=== PATIENT | male | born 1960 | race African-American/Black ===

== ENCOUNTER 2023-03-17 23:01 | Inpatient (IN) | payer MEDICARE, MEDICAID ==
[~2023-03-17] VITALS: Ht 175.3 cm; Wt 88.0 kg
[2023-03-17] MEDS ORDERED: MORPHINE SULFATE 4 MG/ML CPJ (NOT FOR IM USE) IV ONE (23:15)
[2023-03-17] MEDS ORDERED: ONDANSETRON HCL 4MG/2ML INJ IV ONE (23:15)
[2023-03-17] MEDS ORDERED: SODIUM CHLORIDE 0.9% 1,000 ML IV ONE ×2 (23:15)
[2023-03-18] MEDS ORDERED: CLINDAMYCIN 900 MG in DEXTROSE 5% WATER 50 ML IV ONE (01:00)
[2023-03-18] MEDS ORDERED: PIPERACILLIN/TAZ 3.375G PREMIX 50 ML IV ONE (01:00)
[2023-03-18] MEDS ORDERED: VANCOMYCIN 1G PREMIX 200 ML IV SCH (01:00)
[2023-03-18] MEDS ORDERED: MORPHINE SULFATE 4 MG/ML CPJ (NOT FOR IM USE) IV NR (01:15)
[2023-03-18] MEDS ORDERED: CLINDAMYCIN 600MG PREMIX 50 ML IV NR (01:30)
[2023-03-18 01:32] LABS: HEMATOCRIT. 31.4 % (42.0-52.0); HEMOGLOBIN. 10.3 g/dL (14.0-18.0); MEAN CORPUSCULAR HEMOGLOBIN 30.3 pg (28.0-32.0); MEAN CORPUSCULAR HGB CONC 32.7 g/dL (31.0-37.0); MEAN CORPUSCULAR VOLUME 92.6 fL (80.0-94.0); MEAN PLATELET VOLUME 6.6 fl (7.4-10.4); PLATELET 627 x1000/uL (130-400); RED BLOOD CELL COUNT 3.39 mill/uL (4.7-6.1); RED CELL DISTRIBUTION WIDTH 13.7 % (11.6-14.6); WHITE BLOOD COUNT 27.5 x1000/uL (4.5-11.0)
[2023-03-18] MEDS ORDERED: ONDANSETRON HCL 4MG/2ML INJ IV NR (01:45)
[2023-03-18 01:46] LABS: ALANINE AMINOTRANSFERASE 16 IU/L (10-49); ALBUMIN 3.4 g/dL (3.2-4.8); ASPARTATE AMINOTRANSFERASE 24 IU/L (<34); BILIRUBIN TOTAL 0.7 mg/dL (0.1-1.0); CALCIUM 8.7 mg/dL (8.7-10.4); CARBON DIOXIDE 28 mEq/L (21-32); CHLORIDE 96 mEq/L (98-107); CREATINE KINASE 72 IU/L (46-171); CREATININE 1.3 mg/dL (0.6-1.3); GLUCOSE 127 mg/dL (70-105); POTASSIUM 3.5 mEq/L (3.5-5.1); PROTEIN TOTAL 7.2 g/dL (6.0-8.3); SODIUM 132 mEq/L (136-145); TROPONIN I HIGH SENSITIVITY 46 ng/L (3.0-53); UREA NITROGEN BLOOD 24 mg/dL (9-23)
[2023-03-18 01:58] LABS: DIFFERENTIAL COMMENT 1
[2023-03-18 02:02] LABS: ETHANOL BLOOD < 10 mg/dL (<10)
[2023-03-18 02:19] LABS: INR 1.3; PROTHROMBIN TIME 13.5 sec (9.6-11.0)
[2023-03-18 02:33] LABS: PLATELET ESTIMATE INCREASED
[2023-03-18] MEDS ORDERED: DOCUSATE SODIUM 100MG CAPSULE PO PRN (03:45)
[2023-03-18] MEDS ORDERED: ACETAMINOPHEN 325MG TABLET PO PRN ×2 (03:45)
[2023-03-18] MEDS ORDERED: GUAIFENESIN 200MG/10ML SUGAR FREE UDC PO PRN (03:45)
[2023-03-18] MEDS ORDERED: DEXTROSE 50% WATER 50ML SYRINGE IV PRN (03:45)
[2023-03-18] MEDS ORDERED: SODIUM CHLORIDE 0.9% 1,000 ML IV SCH (03:45)
[2023-03-18] MEDS ORDERED: IPRATROPIUM/ALBUTEROL 0.5-3(2.5)MG/3ML NEB HHN PRN (03:45)
[2023-03-18] MEDS ORDERED: MAGNESIUM/ALUMINUM HYDROXIDE/SIMETHICONE 30ML UDC PO PRN (03:45)
[2023-03-18] MEDS ORDERED: CLONIDINE 0.1MG TABLET PO PRN (03:45)
[2023-03-18] MEDS ORDERED: ONDANSETRON HCL 4MG/2ML INJ IV PRN (03:45)
[2023-03-18] MEDS ORDERED: VANCOMYCIN 500MG PREMIX 100 ML IV NR (04:00)
[2023-03-18 04:50] LABS: FERRITIN 337 ng/mL (22-322); VITAMIN B12 SERUM 452 pg/mL (211-911)
[2023-03-18 05:13] LABS: IRON 18 ug/dL (65-175); TOTAL IRON BINDING CAPACITY 523 ug/dl (250-425)
[2023-03-18] MEDS: INSULIN LISPRO 100 UNITS/ML SUBCUT SCH ×4 (08:09→22:02)
[2023-03-18] MEDS: BLOOD SUGAR DIAGNOSTIC STRIP TEST SCH ×4 (08:09→21:47)
[2023-03-18] MEDS ORDERED: PIPERACILLIN/TAZOBACTAM 3.375 G in DEXTROSE 5% WATER 50 ML IV SCH ×2 (08:30→10:00)
[2023-03-18 09:00] VITALS: BP 112/68; PULSE 87; RESP 18; TEMP 96.9
[2023-03-18] MEDS: ENOXAPARIN 40MG/0.4ML SYR SUBCUT SCH (10:29)
[2023-03-18 12:00] VITALS: BP 111/72; PULSE 93; RESP 18; TEMP 99.1
[2023-03-18 12:53] LABS: CLARITY URINE CLOUDY (CLEAR); COLOR URINE DARK YELLOW (YELLOW); GLUCOSE URINE NEGATIVE (NEGATIVE); KETONES URINE NEGATIVE (NEGATIVE); LEUKOCYTE ESTERASE URINE NEGATIVE (NEGATIVE); NITRITE URINE NEGATIVE (NEGATIVE); OCCULT BLOOD URINE TRACE (NEGATIVE); PH URINE 5.5 (4.5-8.0); PROTEIN URINE 1+ (NEGATIVE)
[2023-03-18 13:15] LABS: BACTERIA URINE FEW; RBC URINE 0-2 /hpf (0-2); SQUAMOUS EPITHELIAL CELL URINE RARE /lpf (RARE/1+); WBC URINE 0-2 /hpf (0-2); YEAST URINE NONE SEEN
[2023-03-18] MEDS ORDERED: CEFTRIAXONE 2GM/50ML (ADDEASE) 50 ML IV SCH (14:00)
[2023-03-18 14:30] LABS: *AMPHETAMINES SCREEN URINE NEGATIVE (NEGATIVE); *BARBITURATES SCREEN URINE NEGATIVE (NEGATIVE); *BENZODIAZEPINES SCREEN URINE NEGATIVE (NEGATIVE); *COCAINE SCREEN URINE NEGATIVE (NEGATIVE); CANNABINOID URINE SCREEN NEGATIVE (NEGATIVE); ECSTASY MDMA SCREEN URINE NEGATIVE (NEGATIVE); METHADONE URINE SCREEN Neg (NEGATIVE); OPIATES URINE SCREEN PRESUMPTIVE POSITIVE (NEGATIVE); PHENCYCLIDINE URINE SCREEN NEGATIVE (NEGATIVE)
[2023-03-18 14:30] LABS: CREATINE KINASE 61 IU/L (46-171)
[2023-03-18] MEDS: CEFTRIAXONE 2 G in DEXTROSE 5% WATER 50 ML IV SCH (15:07)
[2023-03-18] MEDS ORDERED: GLIP5TAB22 MT (15:56)
[2023-03-18] MEDS ORDERED: METF-414 MT (15:56)
[2023-03-18] MEDS ORDERED: MAGN400C PO (15:56)
[2023-03-18 16:00] VITALS: BP 120/66; PULSE 86; RESP 18; TEMP 98.7
[2023-03-18] MEDS ORDERED: NALOXONE HCL 0.4MG/ML VIAL IV PRN (17:00)
[2023-03-18] MEDS ORDERED: CLINDAMYCIN 900 MG in DEXTROSE 5% WATER 50 ML IV SCH (17:00)
[2023-03-18] MEDS ORDERED: CLINDAMYCIN 900 MG IV SCH ×2 (18:00)
[2023-03-18] MEDS ORDERED: PNEUMOCOCCAL 23-VAL P-SAC VAC 0.5 ML IM ONE (18:30)
[2023-03-18] MEDS ORDERED: INFLUENZA VACCINE 05/PF 0.5 ML SYRINGE IM ONE (18:30)
[2023-03-18] MEDS: CLINDAMYCIN 900 MG IV SCH ×2 (19:18)
[2023-03-18 20:00] VITALS: BP 131/68; PULSE 85; RESP 18; TEMP 98.1
[2023-03-18] MEDS: VANCOMYCIN 750MG PREMIX 150 ML IV SCH (21:18)
[2023-03-18] MEDS ORDERED: ETOMIDATE 2MG/ML 10ML VIAL IV ONE (23:27)
[2023-03-18] MEDS ORDERED: ROCURONIUM BROMIDE 10MG/ML VIAL 5ML IV ONE (23:27)
[2023-03-18] MEDS ORDERED: FENTANYL CITRATE/PF 50MCG/ML 2ML VIAL ONE (23:28)
[2023-03-18] MEDS ORDERED: GLYCOPYRROLATE 0.2 MG/ML 2ML VIAL ONE ×2 (23:28)
[2023-03-18] MEDS ORDERED: NEOSTIGMINE METHYLSULFATE 1MG/ML 10 ML VIAL ONE (23:28)
[2023-03-18] MEDS ORDERED: MIDAZOLAM HCL 2 MG/2 ML VIAL ONE (23:29)
[2023-03-18] MEDS ORDERED: LABETALOL HCL 5MG/ML VIAL 20ML IV ONE (23:49)
[2023-03-18] MEDS ORDERED: HYDROMORPHONE HCL/PF 2MG/ML CPJ ONE (23:50)
[2023-03-19] MEDS ORDERED: ONDANSETRON HCL 4MG/2ML INJ IV PRN (00:15)
[2023-03-19] MEDS ORDERED: GENTAMICIN SULF 40MG/ML 2ML VIAL ONE (00:15)
[2023-03-19] MEDS ORDERED: HYDROMORPHONE HCL/PF 2MG/ML CPJ IV PRN (00:15)
[2023-03-19] MEDS ORDERED: LABETALOL 5MG/ML SYR 20 MG/4 ML SYRINGE IV PRN (00:15)
[2023-03-19] MEDS ORDERED: VANCOMYCIN HCL 1 GM/VIAL ONE ×2 (00:15→00:16)
[2023-03-19] MEDS ORDERED: MEPERIDINE HCL/PF 25MG/ML CPJ IV PRN (00:15)
[2023-03-19 02:35] VITALS: BP 113/61; PULSE 76; RESP 18; TEMP 98.4
[2023-03-19] MEDS: CLINDAMYCIN 900 MG IV SCH ×6 (03:00→18:25)
[2023-03-19 04:00] VITALS: BP 120/63; PULSE 75; RESP 20; TEMP 97.2
[2023-03-19] MEDS: BLOOD SUGAR DIAGNOSTIC STRIP TEST SCH ×4 (05:51→21:15)
[2023-03-19] MEDS: INSULIN LISPRO 100 UNITS/ML SUBCUT SCH ×4 (06:16→21:18)
[2023-03-19 07:12] LABS: HEMATOCRIT. 27.7 % (42.0-52.0); HEMOGLOBIN. 9.2 g/dL (14.0-18.0); MEAN CORPUSCULAR HEMOGLOBIN 30.6 pg (28.0-32.0); MEAN CORPUSCULAR HGB CONC 33.4 g/dL (31.0-37.0); MEAN CORPUSCULAR VOLUME 91.5 fL (80.0-94.0); MEAN PLATELET VOLUME 6.6 fl (7.4-10.4); PLATELET 592 x1000/uL (130-400); RED BLOOD CELL COUNT 3.02 mill/uL (4.7-6.1); RED CELL DISTRIBUTION WIDTH 14.2 % (11.6-14.6); WHITE BLOOD COUNT 32.1 x1000/uL (4.5-11.0)
[2023-03-19 07:17] LABS: DIFFERENTIAL COMMENT 1
[2023-03-19 07:39] LABS: ALANINE AMINOTRANSFERASE 12 IU/L (10-49); ALBUMIN 2.7 g/dL (3.2-4.8); ASPARTATE AMINOTRANSFERASE 18 IU/L (<34); BILIRUBIN TOTAL < 0.2 mg/dL (0.1-1.0); CARBON DIOXIDE 25 mEq/L (21-32); CHLORIDE 98 mEq/L (98-107); CHOLESTEROL 95 mg/dL (<200); CREATININE 1.2 mg/dL (0.6-1.3); GLUCOSE 216 mg/dL (70-105); HDL CHOLESTEROL < 20 mg/dL (>55); LDL CHOLESTEROL 68 mg/dL (5-100); POTASSIUM 3.8 mEq/L (3.5-5.1); PROTEIN TOTAL 5.9 g/dL (6.0-8.3); SODIUM 133 mEq/L (136-145); T4 FREE 1.53 ng/dL (0.89-1.76); THYROID STIMULATING HORMONE 0.73 uIU/mL (0.55-4.78); TRIGLYCERIDE 77 mg/dL (0-150); UREA NITROGEN BLOOD 23 mg/dL (9-23)
[2023-03-19 08:00] VITALS: BP 125/57; PULSE 70; RESP 18; TEMP 99.3
[2023-03-19] MEDS: VANCOMYCIN 750MG PREMIX 150 ML IV SCH ×2 (08:43→21:16)
[2023-03-19] MEDS: ENOXAPARIN 40MG/0.4ML SYR SUBCUT SCH (08:44)
[2023-03-19] MEDS: HYDROCODONE/ACETAMINOPHEN 5/325MG TABLET PO PRN ×2 (08:56→18:25)
[2023-03-19 12:00] VITALS: BP 129/74; PULSE 79; RESP 18; TEMP 97.4
[2023-03-19 13:38] LABS: PLATELET ESTIMATE INCREASED
[2023-03-19] MEDS: CEFTRIAXONE 2 G in DEXTROSE 5% WATER 50 ML IV SCH (14:59)
[2023-03-19 16:00] VITALS: BP 104/57; PULSE 68; RESP 18; TEMP 97.2
[2023-03-19 20:00] VITALS: BP 105/69; PULSE 80; RESP 20; TEMP 97.4
[2023-03-19] MEDS: INSULIN GLARGINE 100 UNITS/ML SUBCUT SCH (21:19)
[2023-03-20] VITALS: BP 105/58; PULSE 64; RESP 18; TEMP 96.8
[2023-03-20] MEDS: CLINDAMYCIN 900 MG IV SCH ×6 (01:49→17:52)
[2023-03-20 04:00] VITALS: BP 110/61; PULSE 68; RESP 20; TEMP 96.9
[2023-03-20] MEDS: BLOOD SUGAR DIAGNOSTIC STRIP TEST SCH ×4 (06:37→21:00)
[2023-03-20] MEDS: INSULIN LISPRO 100 UNITS/ML SUBCUT SCH ×4 (06:50→22:22)
[2023-03-20 08:00] VITALS: BP 111/61; PULSE 74; RESP 20; TEMP 97.7
[2023-03-20] MEDS: VANCOMYCIN 750MG PREMIX 150 ML IV SCH (08:46)
[2023-03-20] MEDS: TAMSULOSIN HCL 0.4MG SR CAPSULE PO SCH (08:47)
[2023-03-20] MEDS: ENOXAPARIN 40MG/0.4ML SYR SUBCUT SCH (08:48)
[2023-03-20 09:43] LABS: HEMATOCRIT. 25.9 % (42.0-52.0); HEMOGLOBIN. 8.8 g/dL (14.0-18.0); MEAN CORPUSCULAR HEMOGLOBIN 30.4 pg (28.0-32.0); MEAN CORPUSCULAR HGB CONC 33.9 g/dL (31.0-37.0); MEAN CORPUSCULAR VOLUME 89.6 fL (80.0-94.0); MEAN PLATELET VOLUME 6.7 fl (7.4-10.4); PLATELET 578 x1000/uL (130-400); RED BLOOD CELL COUNT 2.89 mill/uL (4.7-6.1); WHITE BLOOD COUNT 21.6 x1000/uL (4.5-11.0)
[2023-03-20 09:49] LABS: DIFFERENTIAL COMMENT 1
[2023-03-20 09:56] LABS: ALANINE AMINOTRANSFERASE 8 IU/L (10-49); ALBUMIN 2.6 g/dL (3.2-4.8); ASPARTATE AMINOTRANSFERASE 11 IU/L (<34); BILIRUBIN TOTAL 0.2 mg/dL (0.1-1.0); CALCIUM 7.7 mg/dL (8.7-10.4); CARBON DIOXIDE 30 mEq/L (21-32); CHLORIDE 97 mEq/L (98-107); CREATININE 1.2 mg/dL (0.6-1.3); GLUCOSE 185 mg/dL (70-105); POTASSIUM 3.7 mEq/L (3.5-5.1); SODIUM 134 mEq/L (136-145); UREA NITROGEN BLOOD 19 mg/dL (9-23)
[2023-03-20 12:00] VITALS: BP 114/58; PULSE 69; RESP 20; TEMP 97.9
[2023-03-20 14:40] LABS: PLATELET ESTIMATE INCREASED
[2023-03-20] MEDS: CEFTRIAXONE 2 G in DEXTROSE 5% WATER 50 ML IV SCH (15:08)
[2023-03-20 16:00] VITALS: BP 104/57; PULSE 91; RESP 18; TEMP 97.9
[2023-03-20] MEDS: CEFEPIME 2,000 MG in DEXT 5% WATER 100 ML IV SCH (18:28)
[2023-03-20] MEDS: SODIUM CHLORIDE 0.9% 1,000 ML IV SCH (18:29)
[2023-03-20 20:00] VITALS: BP 111/61; PULSE 75; RESP 20; TEMP 97.3
[2023-03-20] MEDS: HYDROCODONE/ACETAMINOPHEN 5/325MG TABLET PO PRN (21:01)
[2023-03-20] MEDS: INSULIN GLARGINE 100 UNITS/ML SUBCUT SCH (22:21)
[2023-03-20] MEDS: VANCOMYCIN 1G PREMIX 200 ML IV SCH (23:31)
[2023-03-21] VITALS: BP 114/60; PULSE 65; RESP 20; TEMP 97.7
[2023-03-21] MEDS: CLINDAMYCIN 900 MG IV SCH ×6 (02:23→18:04)
[2023-03-21 04:00] VITALS: BP 111/61; PULSE 75; RESP 20; TEMP 97.3
[2023-03-21] MEDS: CEFEPIME 2,000 MG in DEXT 5% WATER 100 ML IV SCH ×2 (05:59→18:47)
[2023-03-21] MEDS: INSULIN LISPRO 100 UNITS/ML SUBCUT SCH ×6 (06:34→21:00)
[2023-03-21] MEDS: BLOOD SUGAR DIAGNOSTIC STRIP TEST SCH ×4 (07:10→21:24)
[2023-03-21 08:00] VITALS: BP 129/71; PULSE 76; RESP 20; TEMP 97.5
[2023-03-21 08:22] LABS: HEMATOCRIT. 26.6 % (42.0-52.0); HEMOGLOBIN. 8.9 g/dL (14.0-18.0); MEAN CORPUSCULAR HEMOGLOBIN 30.4 pg (28.0-32.0); MEAN CORPUSCULAR HGB CONC 33.7 g/dL (31.0-37.0); MEAN CORPUSCULAR VOLUME 90.4 fL (80.0-94.0); MEAN PLATELET VOLUME 6.6 fl (7.4-10.4); PLATELET 595 x1000/uL (130-400); RED BLOOD CELL COUNT 2.94 mill/uL (4.7-6.1); RED CELL DISTRIBUTION WIDTH 14.2 % (11.6-14.6); WHITE BLOOD COUNT 15.4 x1000/uL (4.5-11.0)
[2023-03-21 08:25] LABS: DIFFERENTIAL COMMENT 1
[2023-03-21] MEDS: TAMSULOSIN HCL 0.4MG SR CAPSULE PO SCH (08:36)
[2023-03-21] MEDS: ENOXAPARIN 40MG/0.4ML SYR SUBCUT SCH (08:37)
[2023-03-21 08:46] LABS: ALANINE AMINOTRANSFERASE < 7 IU/L (10-49); ALBUMIN 2.5 g/dL (3.2-4.8); ASPARTATE AMINOTRANSFERASE 9 IU/L (<34); BILIRUBIN TOTAL 0.2 mg/dL (0.1-1.0); CALCIUM 7.8 mg/dL (8.7-10.4); CARBON DIOXIDE 29 mEq/L (21-32); CHLORIDE 98 mEq/L (98-107); GLUCOSE 166 mg/dL (70-105); POTASSIUM 4.1 mEq/L (3.5-5.1); SODIUM 134 mEq/L (136-145); UREA NITROGEN BLOOD 18 mg/dL (9-23)
[2023-03-21 12:00] VITALS: BP 124/64; PULSE 72; RESP 20; TEMP 98.1
[2023-03-21] MEDS: FERROUS SULFATE 325MG TABLET PO SCH ×2 (12:50→17:17)
[2023-03-21] MEDS: SODIUM CHLORIDE 0.9% 1,000 ML IV SCH (14:15)
[2023-03-21 14:41] LABS: PLATELET ESTIMATE INCREASED
[2023-03-21 16:00] VITALS: BP 109/67; PULSE 84; RESP 20; TEMP 100
[2023-03-21] MEDS: VANCOMYCIN 1G PREMIX 200 ML IV SCH (17:17)
[2023-03-21 20:00] VITALS: BP 131/75; PULSE 78; RESP 19; TEMP 98.8
[2023-03-21] MEDS ORDERED: CEFTRIAXONE 2GM/50ML (ADDEASE) 50 ML IV SCH (20:15)
[2023-03-21] MEDS: CEFTRIAXONE 2 G in DEXTROSE 5% WATER 50 ML IV SCH (21:16)
[2023-03-21] MEDS: INSULIN GLARGINE 100 UNITS/ML SUBCUT SCH (22:00)
[2023-03-22] VITALS: BP 110/75; PULSE 76; RESP 18; TEMP 98
[2023-03-22] MEDS: SODIUM CHLORIDE 0.9% 1,000 ML IV SCH ×3 (00:15→21:59)
[2023-03-22 04:00] VITALS: BP 139/68; PULSE 75; RESP 19; TEMP 97.8
[2023-03-22] MEDS: BLOOD SUGAR DIAGNOSTIC STRIP TEST SCH ×4 (06:44→21:59)
[2023-03-22] MEDS: INSULIN LISPRO 100 UNITS/ML SUBCUT SCH ×7 (06:45→21:00)
[2023-03-22] MEDS: FERROUS SULFATE 325MG TABLET PO SCH ×3 (06:50→17:42)
[2023-03-22 06:59] LABS: INR 1.1; PROTHROMBIN TIME 11.9 sec (9.6-11.0)
[2023-03-22 07:10] LABS: HEMATOCRIT. 28.5 % (42.0-52.0); HEMOGLOBIN. 9.2 g/dL (14.0-18.0); MEAN CORPUSCULAR HEMOGLOBIN 29.6 pg (28.0-32.0); MEAN CORPUSCULAR HGB CONC 32.4 g/dL (31.0-37.0); MEAN CORPUSCULAR VOLUME 91.3 fL (80.0-94.0); MEAN PLATELET VOLUME 6.4 fl (7.4-10.4); PLATELET 625 x1000/uL (130-400); RED BLOOD CELL COUNT 3.12 mill/uL (4.7-6.1); RED CELL DISTRIBUTION WIDTH 14.1 % (11.6-14.6); WHITE BLOOD COUNT 15.2 x1000/uL (4.5-11.0)
[2023-03-22 07:54] LABS: DIFFERENTIAL COMMENT 1
[2023-03-22 08:00] VITALS: BP 131/63; PULSE 77; RESP 18; TEMP 98.2
[2023-03-22] MEDS ORDERED: POLYMYXIN B SULFATE 500000 UNITS/VIAL ONE (08:29)
[2023-03-22] MEDS ORDERED: VANCOMYCIN HCL 1 GM/VIAL ONE (08:29)
[2023-03-22] MEDS ORDERED: BUPIVACAINE HCL/PF 0.5% (5MG/ML) 10ML ONE (08:29)
[2023-03-22] MEDS ORDERED: LIDOCAINE HCL 1% 10 MG/ML 10ML VIAL ONE (08:29)
[2023-03-22] MEDS: ENOXAPARIN 40MG/0.4ML SYR SUBCUT SCH ×2 (09:00→12:57)
[2023-03-22] MEDS ORDERED: PROPOFOL 200MG/20ML VIAL IV ONE (09:01)
[2023-03-22] MEDS ORDERED: MIDAZOLAM HCL 2 MG/2 ML VIAL ONE (09:19)
[2023-03-22] MEDS ORDERED: FENTANYL CITRATE/PF 50MCG/ML 2ML VIAL ONE (09:20)
[2023-03-22] MEDS ORDERED: CEFAZOLIN SODIUM 1000MG/VIAL ONE (09:22)
[2023-03-22] MEDS ORDERED: DEXAMETHASONE 4MG/ML 1ML VIAL ONE (09:22)
[2023-03-22] MEDS ORDERED: ONDANSETRON HCL 4MG/2ML INJ ONE (09:22)
[2023-03-22] MEDS ORDERED: PHENYLEPHRINE HCL 10 MG/ML 1ML (IV VIAL) IV ONE (09:23)
[2023-03-22 09:33] LABS: ALANINE AMINOTRANSFERASE < 7 IU/L (10-49); ALBUMIN 2.6 g/dL (3.2-4.8); ASPARTATE AMINOTRANSFERASE 11 IU/L (<34); BILIRUBIN TOTAL 0.2 mg/dL (0.1-1.0); CALCIUM 7.9 mg/dL (8.7-10.4); CARBON DIOXIDE 27 mEq/L (21-32); CHLORIDE 101 mEq/L (98-107); GLUCOSE 141 mg/dL (70-105); POTASSIUM 4.2 mEq/L (3.5-5.1); PROTEIN TOTAL 5.1 g/dL (6.0-8.3); SODIUM 136 mEq/L (136-145); UREA NITROGEN BLOOD 14 mg/dL (9-23)
[2023-03-22] MEDS ORDERED: MEPERIDINE HCL/PF 25MG/ML CPJ IV PRN (09:45)
[2023-03-22] MEDS ORDERED: HYDROMORPHONE HCL/PF 2MG/ML CPJ IV PRN (09:45)
[2023-03-22] MEDS ORDERED: ONDANSETRON HCL 4MG/2ML INJ IV PRN (09:45)
[2023-03-22] MEDS ORDERED: FENTANYL CITRATE/PF 50MCG/ML 2ML VIAL IV PRN (09:45)
[2023-03-22] MEDS ORDERED: SUCCINYLCHOLINE CHLORIDE 200MG/10ML IV ONE (10:23)
[2023-03-22] MEDS ORDERED: ROCURONIUM BROMIDE 10MG/ML VIAL 5ML IV ONE (10:23)
[2023-03-22] MEDS ORDERED: HYDROCODONE/ACETAMINOPHEN 5/325MG TABLET PO PRN (10:45)
[2023-03-22 12:00] VITALS: BP 127/65; PULSE 71; RESP 18; TEMP 98.1
[2023-03-22] MEDS: VANCOMYCIN 1G PREMIX 200 ML IV SCH (12:55)
[2023-03-22] MEDS: TAMSULOSIN HCL 0.4MG SR CAPSULE PO SCH (12:55)
[2023-03-22 16:00] VITALS: BP 123/64; PULSE 88; RESP 18; TEMP 97.7
[2023-03-22 16:17] LABS: PLATELET ESTIMATE INCREASED
[2023-03-22 20:00] VITALS: BP 102/57; PULSE 75; RESP 19; TEMP 98.2
[2023-03-22] MEDS: CEFTRIAXONE 2 G in DEXTROSE 5% WATER 50 ML IV SCH (21:58)
[2023-03-22] MEDS: INSULIN GLARGINE 100 UNITS/ML SUBCUT SCH (22:00)
[2023-03-23] VITALS: BP 110/63; PULSE 76; RESP 19; TEMP 98.6
[2023-03-23 04:00] VITALS: BP 120/64; PULSE 72; RESP 19; TEMP 98.1
[2023-03-23] MEDS: SODIUM CHLORIDE 0.9% 1,000 ML IV SCH ×2 (06:23→18:15)
[2023-03-23] MEDS: BLOOD SUGAR DIAGNOSTIC STRIP TEST SCH ×4 (06:24→21:39)
[2023-03-23] MEDS: VANCOMYCIN 1G PREMIX 200 ML IV SCH (06:29)
[2023-03-23] MEDS: INSULIN LISPRO 100 UNITS/ML SUBCUT SCH ×8 (06:41→21:00)
[2023-03-23] MEDS: FERROUS SULFATE 325MG TABLET PO SCH ×3 (06:42→17:30)
[2023-03-23 06:44] LABS: HEMATOCRIT. 25.1 % (42.0-52.0); HEMOGLOBIN. 8.4 g/dL (14.0-18.0); MEAN CORPUSCULAR HEMOGLOBIN 30.3 pg (28.0-32.0); MEAN CORPUSCULAR HGB CONC 33.7 g/dL (31.0-37.0); MEAN PLATELET VOLUME 6.6 fl (7.4-10.4); PLATELET 561 x1000/uL (130-400); RED BLOOD CELL COUNT 2.79 mill/uL (4.7-6.1); RED CELL DISTRIBUTION WIDTH 14.2 % (11.6-14.6); WHITE BLOOD COUNT 14.4 x1000/uL (4.5-11.0)
[2023-03-23 07:23] LABS: ALANINE AMINOTRANSFERASE < 7 IU/L (10-49); ALBUMIN 2.5 g/dL (3.2-4.8); ASPARTATE AMINOTRANSFERASE 11 IU/L (<34); BILIRUBIN TOTAL 0.2 mg/dL (0.1-1.0); CALCIUM 7.9 mg/dL (8.7-10.4); CARBON DIOXIDE 30 mEq/L (21-32); CHLORIDE 103 mEq/L (98-107); CREATININE 1.1 mg/dL (0.6-1.3); GLUCOSE 153 mg/dL (70-105); POTASSIUM 4.2 mEq/L (3.5-5.1); PROTEIN TOTAL 5.4 g/dL (6.0-8.3); SODIUM 137 mEq/L (136-145); UREA NITROGEN BLOOD 16 mg/dL (9-23)
[2023-03-23 07:45] LABS: DIFFERENTIAL COMMENT 1
[2023-03-23 08:00] VITALS: BP 105/69; PULSE 72; RESP 16; TEMP 98.9
[2023-03-23] MEDS: TAMSULOSIN HCL 0.4MG SR CAPSULE PO SCH (09:05)
[2023-03-23] MEDS: ENOXAPARIN 40MG/0.4ML SYR SUBCUT SCH (09:05)
[2023-03-23] MEDS: HYDROCODONE/ACETAMINOPHEN 10/325MG TABLET PO PRN ×2 (11:51→18:16)
[2023-03-23 12:00] VITALS: BP 122/66; PULSE 70; RESP 17; TEMP 97.9
[2023-03-23 16:00] VITALS: BP 122/66; PULSE 70; RESP 15; TEMP 97.9
[2023-03-23 17:10] LABS: PLATELET ESTIMATE INCREASED
[2023-03-23 20:00] VITALS: BP 105/61; PULSE 70; RESP 18; TEMP 98.8
[2023-03-23] MEDS: CEFTRIAXONE 2 G in DEXTROSE 5% WATER 50 ML IV SCH (21:38)
[2023-03-23] MEDS: INSULIN GLARGINE 100 UNITS/ML SUBCUT SCH (21:51)
[2023-03-24] VITALS: BP 120/63; PULSE 68; RESP 18; TEMP 97.8
[2023-03-24] MEDS: SODIUM CHLORIDE 0.9% 1,000 ML IV SCH ×3 (01:34→22:15)
[2023-03-24 04:00] VITALS: BP 129/69; PULSE 68; RESP 18; TEMP 97.8
[2023-03-24] MEDS ORDERED: VANCOMYCIN 1G PREMIX 200 ML IV SCH (06:00)
[2023-03-24 06:27] LABS: HEMATOCRIT. 24.9 % (42.0-52.0); HEMOGLOBIN. 8.2 g/dL (14.0-18.0); MEAN CORPUSCULAR HEMOGLOBIN 30.7 pg (28.0-32.0); MEAN CORPUSCULAR VOLUME 93.1 fL (80.0-94.0); MEAN PLATELET VOLUME 6.2 fl (7.4-10.4); PLATELET 580 x1000/uL (130-400); RED BLOOD CELL COUNT 2.67 mill/uL (4.7-6.1); RED CELL DISTRIBUTION WIDTH 14.2 % (11.6-14.6); WHITE BLOOD COUNT 10.9 x1000/uL (4.5-11.0)
[2023-03-24] MEDS: INSULIN LISPRO 100 UNITS/ML SUBCUT SCH ×7 (06:33→21:00)
[2023-03-24] MEDS: BLOOD SUGAR DIAGNOSTIC STRIP TEST SCH ×4 (06:34→20:58)
[2023-03-24 06:43] LABS: DIFFERENTIAL COMMENT 1
[2023-03-24] MEDS: FERROUS SULFATE 325MG TABLET PO SCH ×3 (06:52→17:20)
[2023-03-24 07:20] LABS: CALCIUM 7.9 mg/dL (8.7-10.4); CARBON DIOXIDE 29 mEq/L (21-32); CHLORIDE 103 mEq/L (98-107); CREATININE 1.1 mg/dL (0.6-1.3); GLUCOSE 120 mg/dL (70-105); POTASSIUM 4.2 mEq/L (3.5-5.1); SODIUM 136 mEq/L (136-145); UREA NITROGEN BLOOD 11 mg/dL (9-23)
[2023-03-24 08:00] VITALS: BP 131/62; PULSE 68; RESP 18; TEMP 97.5
[2023-03-24] MEDS: TAMSULOSIN HCL 0.4MG SR CAPSULE PO SCH (09:17)
[2023-03-24] MEDS: ENOXAPARIN 40MG/0.4ML SYR SUBCUT SCH (09:17)
[2023-03-24] MEDS: HYDROCODONE/ACETAMINOPHEN 10/325MG TABLET PO PRN ×2 (11:44→21:35)
[2023-03-24 12:00] VITALS: BP 161/88; PULSE 78; RESP 18; TEMP 97.7
[2023-03-24 13:54] LABS: PLATELET ESTIMATE INCREASED
[2023-03-24 16:00] VITALS: BP 121/63; PULSE 70; RESP 18; TEMP 97.5
[2023-03-24 20:00] VITALS: BP 127/69; PULSE 79; RESP 20; TEMP 97.8
[2023-03-24] MEDS: AMPICILLIN SOD/SULBACTAM NA 3 G in SODIUM CHLORIDE 0.9% 100 ML IV SCH (21:19)
[2023-03-24] MEDS: INSULIN GLARGINE 100 UNITS/ML SUBCUT SCH (21:39)
[2023-03-25] VITALS: BP 130/88; PULSE 79; RESP 18; TEMP 97.8
[2023-03-25] MEDS: AMPICILLIN SOD/SULBACTAM NA 3 G in SODIUM CHLORIDE 0.9% 100 ML IV SCH ×4 (03:45→21:38)
[2023-03-25 04:00] VITALS: BP 147/77; PULSE 85; RESP 18; TEMP 98.2
[2023-03-25] MEDS: INSULIN LISPRO 100 UNITS/ML SUBCUT SCH ×7 (07:10→21:21)
[2023-03-25] MEDS: BLOOD SUGAR DIAGNOSTIC STRIP TEST SCH ×4 (07:33→21:00)
[2023-03-25] MEDS: FERROUS SULFATE 325MG TABLET PO SCH ×3 (07:40→16:54)
[2023-03-25 08:00] VITALS: BP 153/96; PULSE 82; RESP 20; TEMP 98.3
[2023-03-25] MEDS: SODIUM CHLORIDE 0.9% 1,000 ML IV SCH ×2 (08:15→16:55)
[2023-03-25 08:16] LABS: HEMATOCRIT. 25.8 % (42.0-52.0); HEMOGLOBIN. 8.6 g/dL (14.0-18.0); MEAN CORPUSCULAR HEMOGLOBIN 30.2 pg (28.0-32.0); MEAN CORPUSCULAR HGB CONC 33.5 g/dL (31.0-37.0); MEAN CORPUSCULAR VOLUME 90.1 fL (80.0-94.0); MEAN PLATELET VOLUME 5.8 fl (7.4-10.4); PLATELET 574 x1000/uL (130-400); RED BLOOD CELL COUNT 2.86 mill/uL (4.7-6.1); RED CELL DISTRIBUTION WIDTH 14.4 % (11.6-14.6); WHITE BLOOD COUNT 11.4 x1000/uL (4.5-11.0)
[2023-03-25 08:19] LABS: DIFFERENTIAL COMMENT 1
[2023-03-25 08:38] LABS: INR 1.1; PROTHROMBIN TIME 11.4 sec (9.6-11.0)
[2023-03-25 08:59] LABS: CARBON DIOXIDE 32 mEq/L (21-32); CHLORIDE 102 mEq/L (98-107); GLUCOSE 175 mg/dL (70-105); POTASSIUM 4.2 mEq/L (3.5-5.1); SODIUM 136 mEq/L (136-145); UREA NITROGEN BLOOD 14 mg/dL (9-23)
[2023-03-25] MEDS: TAMSULOSIN HCL 0.4MG SR CAPSULE PO SCH (09:00)
[2023-03-25] MEDS: ENOXAPARIN 40MG/0.4ML SYR SUBCUT SCH (09:00)
[2023-03-25 11:00] VITALS: BP 144/62; PULSE 81; RESP 18; TEMP 98.1
[2023-03-25] MEDS ORDERED: FENTANYL CITRATE/PF 50MCG/ML 2ML VIAL ONE (12:03)
[2023-03-25] MEDS ORDERED: LIDOCAINE HCL 1% 10 MG/ML 10ML VIAL ONE (12:06)
[2023-03-25] MEDS ORDERED: MIDAZOLAM HCL 2 MG/2 ML VIAL ONE (12:06)
[2023-03-25] MEDS ORDERED: BUPIVACAINE HCL/PF 0.25% (2.5MG/ML) 10ML ONE (12:06)
[2023-03-25] MEDS ORDERED: POLYMYXIN B SULFATE 500000 UNITS/VIAL ONE (12:48)
[2023-03-25] MEDS ORDERED: PROPOFOL 200MG/20ML VIAL IV ONE (12:54)
[2023-03-25] MEDS ORDERED: LABETALOL 5MG/ML SYR 20 MG/4 ML SYRINGE IV PRN (14:00)
[2023-03-25] MEDS ORDERED: MEPERIDINE HCL/PF 25MG/ML CPJ IV PRN (14:00)
[2023-03-25] MEDS ORDERED: HYDROMORPHONE HCL/PF 2MG/ML CPJ IV PRN (14:00)
[2023-03-25] MEDS ORDERED: ONDANSETRON HCL 4MG/2ML INJ IV PRN (14:00)
[2023-03-25 15:58] VITALS: BP 148/74; PULSE 79; RESP 18; TEMP 97.8
[2023-03-25 19:20] VITALS: BP 115/67; PULSE 96; RESP 18; TEMP 98.4
[2023-03-25 20:43] LABS: PLATELET ESTIMATE INCREASED
[2023-03-25] MEDS: INSULIN GLARGINE 100 UNITS/ML SUBCUT SCH (21:19)
[2023-03-26] VITALS (7 sets, daily range): BP systolic 122–155; BP diastolic 56–77; PULSE 67–89; RESP 18–20; TEMP 97.2–98.2
[2023-03-26] MEDS: AMPICILLIN SOD/SULBACTAM NA 3 G in SODIUM CHLORIDE 0.9% 100 ML IV SCH ×4 (04:02→22:08)
[2023-03-26] MEDS: SODIUM CHLORIDE 0.9% 1,000 ML IV SCH ×2 (04:02→14:58)
[2023-03-26] MEDS: BLOOD SUGAR DIAGNOSTIC STRIP TEST SCH ×4 (07:10→21:00)
[2023-03-26] MEDS: INSULIN LISPRO 100 UNITS/ML SUBCUT SCH ×7 (07:40→21:00)
[2023-03-26 07:43] LABS: HEMATOCRIT. 22.7 % (42.0-52.0); HEMOGLOBIN. 7.7 g/dL (14.0-18.0); MEAN CORPUSCULAR HEMOGLOBIN 30.7 pg (28.0-32.0); MEAN CORPUSCULAR VOLUME 90.2 fL (80.0-94.0); MEAN PLATELET VOLUME 6.2 fl (7.4-10.4); PLATELET 532 x1000/uL (130-400); RED BLOOD CELL COUNT 2.51 mill/uL (4.7-6.1); RED CELL DISTRIBUTION WIDTH 14.1 % (11.6-14.6); WHITE BLOOD COUNT 10.7 x1000/uL (4.5-11.0)
[2023-03-26 08:19] LABS: DIFFERENTIAL COMMENT 1
[2023-03-26] MEDS: FERROUS SULFATE 325MG TABLET PO SCH ×3 (08:30→17:41)
[2023-03-26] MEDS: TAMSULOSIN HCL 0.4MG SR CAPSULE PO SCH (08:30)
[2023-03-26] MEDS: ENOXAPARIN 40MG/0.4ML SYR SUBCUT SCH (08:30)
[2023-03-26 11:45] LABS: CALCIUM 7.8 mg/dL (8.7-10.4); CARBON DIOXIDE 28 mEq/L (21-32); CHLORIDE 105 mEq/L (98-107); GLUCOSE 111 mg/dL (70-105); POTASSIUM 4.1 mEq/L (3.5-5.1); SODIUM 142 mEq/L (136-145); UREA NITROGEN BLOOD 15 mg/dL (9-23)
[2023-03-26] MEDS ORDERED: LIDOCAINE HCL 1% 10 MG/ML 10ML VIAL ONE (12:25)
[2023-03-26] MEDS: INSULIN GLARGINE 100 UNITS/ML SUBCUT SCH (22:09)
[2023-03-27] VITALS: BP 136/60; PULSE 81; RESP 20; TEMP 97.2
[2023-03-27] MEDS: SODIUM CHLORIDE 0.9% 1,000 ML IV SCH ×3 (00:21→20:15)
[2023-03-27 04:00] VITALS: BP 140/74; PULSE 96; RESP 20; TEMP 97.5
[2023-03-27] MEDS: AMPICILLIN SOD/SULBACTAM NA 3 G in SODIUM CHLORIDE 0.9% 100 ML IV SCH ×4 (04:18→21:39)
[2023-03-27] MEDS: HYDROCODONE/ACETAMINOPHEN 10/325MG TABLET PO PRN (05:19)
[2023-03-27] MEDS: BLOOD SUGAR DIAGNOSTIC STRIP TEST SCH ×4 (06:21→21:39)
[2023-03-27] MEDS: INSULIN LISPRO 100 UNITS/ML SUBCUT SCH ×8 (06:21→21:00)
[2023-03-27 07:57] LABS: PLATELET ESTIMATE INCREASED
[2023-03-27 08:00] VITALS: BP 135/62; PULSE 82; RESP 18; TEMP 97.7
[2023-03-27] MEDS: FERROUS SULFATE 325MG TABLET PO SCH ×3 (08:50→16:55)
[2023-03-27] MEDS: TAMSULOSIN HCL 0.4MG SR CAPSULE PO SCH (08:51)
[2023-03-27] MEDS: ENOXAPARIN 40MG/0.4ML SYR SUBCUT SCH (08:51)
[2023-03-27 12:00] VITALS: BP 129/67; PULSE 82; RESP 18; TEMP 97.8
[2023-03-27 16:00] VITALS: BP 144/83; PULSE 82; RESP 18; TEMP 97.6
[2023-03-27 20:00] VITALS: BP 158/77; PULSE 83; RESP 18; TEMP 97.9
[2023-03-27 20:49] LABS: DIFFERENTIAL COMMENT 1; HEMATOCRIT. 22.2 % (42.0-52.0); HEMOGLOBIN. 7.3 g/dL (14.0-18.0); MEAN CORPUSCULAR HEMOGLOBIN 30.6 pg (28.0-32.0); MEAN CORPUSCULAR HGB CONC 32.8 g/dL (31.0-37.0); MEAN CORPUSCULAR VOLUME 93.2 fL (80.0-94.0); MEAN PLATELET VOLUME 6.2 fl (7.4-10.4); PLATELET 520 x1000/uL (130-400); RED BLOOD CELL COUNT 2.38 mill/uL (4.7-6.1); RED CELL DISTRIBUTION WIDTH 14.3 % (11.6-14.6); WHITE BLOOD COUNT 8.3 x1000/uL (4.5-11.0)
[2023-03-27 21:04] LABS: ALANINE AMINOTRANSFERASE < 7 IU/L (10-49); ALBUMIN 2.9 g/dL (3.2-4.8); ASPARTATE AMINOTRANSFERASE 15 IU/L (<34); BILIRUBIN TOTAL 0.2 mg/dL (0.1-1.0); CARBON DIOXIDE 30 mEq/L (21-32); CHLORIDE 105 mEq/L (98-107); GLUCOSE 112 mg/dL (70-105); POTASSIUM 4.2 mEq/L (3.5-5.1); PROTEIN TOTAL 5.9 g/dL (6.0-8.3); SODIUM 141 mEq/L (136-145); UREA NITROGEN BLOOD 13 mg/dL (9-23)
[2023-03-27] MEDS: INSULIN GLARGINE 100 UNITS/ML SUBCUT SCH (21:41)
[2023-03-27 21:51] LABS: PLATELET ESTIMATE INCREASED
[2023-03-28] VITALS: BP 137/72; PULSE 85; RESP 18; TEMP 98.2
[2023-03-28 04:00] VITALS: BP 132/80; PULSE 86; RESP 19; TEMP 98.1
[2023-03-28] MEDS: AMPICILLIN SOD/SULBACTAM NA 3 G in SODIUM CHLORIDE 0.9% 100 ML IV SCH ×4 (05:25→21:49)
[2023-03-28] MEDS: SODIUM CHLORIDE 0.9% 1,000 ML IV SCH (05:25)
[2023-03-28] MEDS: BLOOD SUGAR DIAGNOSTIC STRIP TEST SCH ×4 (06:41→21:52)
[2023-03-28] MEDS: INSULIN LISPRO 100 UNITS/ML SUBCUT SCH ×6 (06:41→21:00)
[2023-03-28 07:00] LABS: HEMATOCRIT. 22.6 % (42.0-52.0); HEMOGLOBIN. 7.5 g/dL (14.0-18.0); MEAN CORPUSCULAR HEMOGLOBIN 30.2 pg (28.0-32.0); MEAN CORPUSCULAR HGB CONC 33.1 g/dL (31.0-37.0); MEAN PLATELET VOLUME 6.2 fl (7.4-10.4); PLATELET 508 x1000/uL (130-400); RED BLOOD CELL COUNT 2.48 mill/uL (4.7-6.1); RED CELL DISTRIBUTION WIDTH 14.9 % (11.6-14.6); WHITE BLOOD COUNT 7.3 x1000/uL (4.5-11.0)
[2023-03-28 07:02] LABS: DIFFERENTIAL COMMENT 1
[2023-03-28 08:00] VITALS: BP 159/82; PULSE 89; RESP 18; TEMP 98.8
[2023-03-28 08:13] LABS: CARBON DIOXIDE 29 mEq/L (21-32); CHLORIDE 105 mEq/L (98-107); CREATININE 0.9 mg/dL (0.6-1.3); GLUCOSE 75 mg/dL (70-105); POTASSIUM 4.1 mEq/L (3.5-5.1); SODIUM 140 mEq/L (136-145); UREA NITROGEN BLOOD 11 mg/dL (9-23)
[2023-03-28] MEDS: FERROUS SULFATE 325MG TABLET PO SCH ×3 (08:24→17:19)
[2023-03-28] MEDS: TAMSULOSIN HCL 0.4MG SR CAPSULE PO SCH (08:24)
[2023-03-28] MEDS: ENOXAPARIN 40MG/0.4ML SYR SUBCUT SCH (08:25)
[2023-03-28 12:00] VITALS: BP 156/68; PULSE 76; RESP 18; TEMP 97.6
[2023-03-28 14:11] LABS: PLATELET ESTIMATE INCREASED
[2023-03-28 16:00] VITALS: BP 126/72; PULSE 78; RESP 18; TEMP 97.7
[2023-03-28 20:00] VITALS: BP 129/70; PULSE 93; RESP 19; TEMP 100.6
[2023-03-28] MEDS: INSULIN GLARGINE 100 UNITS/ML SUBCUT SCH (21:51)
[2023-03-29] VITALS: BP 133/69; PULSE 84; RESP 19; TEMP 98.1
[2023-03-29 04:00] VITALS: BP 109/67; PULSE 84; RESP 19; TEMP 98.8
[2023-03-29] MEDS: AMPICILLIN SOD/SULBACTAM NA 3 G in SODIUM CHLORIDE 0.9% 100 ML IV SCH ×4 (04:14→23:06)
[2023-03-29] MEDS: BLOOD SUGAR DIAGNOSTIC STRIP TEST SCH ×4 (05:55→21:34)
[2023-03-29] MEDS: INSULIN LISPRO 100 UNITS/ML SUBCUT SCH ×6 (05:56→21:34)
[2023-03-29 07:15] LABS: BASOPHILS % 0.4 % (0.0-2.0); EOSINOPHILS % 0.4 % (0.0-5.0); HEMATOCRIT. 21.7 % (42.0-52.0); HEMOGLOBIN. 7.3 g/dL (14.0-18.0); LYMPHOCYTES % 10.1 % (20.0-50.0); MEAN CORPUSCULAR HEMOGLOBIN 30.2 pg (28.0-32.0); MEAN CORPUSCULAR HGB CONC 33.5 g/dL (31.0-37.0); MEAN CORPUSCULAR VOLUME 90.3 fL (80.0-94.0); MEAN PLATELET VOLUME 6.1 fl (7.4-10.4); MONOCYTES % 11.5 % (2.0-8.0); NEUTROPHILS % 77.6 % (40.0-76.0); PLATELET 439 x1000/uL (130-400); RED BLOOD CELL COUNT 2.41 mill/uL (4.7-6.1); RED CELL DISTRIBUTION WIDTH 14.5 % (11.6-14.6); WHITE BLOOD COUNT 6.7 x1000/uL (4.5-11.0)
[2023-03-29 07:34] LABS: CALCIUM 8.1 mg/dL (8.7-10.4); CARBON DIOXIDE 32 mEq/L (21-32); CHLORIDE 101 mEq/L (98-107); GLUCOSE 69 mg/dL (70-105); POTASSIUM 3.9 mEq/L (3.5-5.1); SODIUM 138 mEq/L (136-145); UREA NITROGEN BLOOD 9 mg/dL (9-23)
[2023-03-29 08:00] VITALS: BP 139/61; PULSE 76; RESP 20; TEMP 98.6
[2023-03-29] MEDS: FERROUS SULFATE 325MG TABLET PO SCH ×3 (09:58→17:20)
[2023-03-29] MEDS: TAMSULOSIN HCL 0.4MG SR CAPSULE PO SCH (09:58)
[2023-03-29 11:07] LABS: CREATINE KINASE 41 IU/L (46-171)
[2023-03-29 12:00] VITALS: BP 146/62; PULSE 79; RESP 20; TEMP 97.8
[2023-03-29 16:00] VITALS: BP 144/63; PULSE 79; RESP 20; TEMP 98
[2023-03-29 18:21] LABS: CREATINE KINASE 49 IU/L (46-171)
[2023-03-29 18:50] LABS: CLARITY URINE TURBID (CLEAR); COLOR URINE RED (YELLOW); GLUCOSE URINE NEGATIVE (NEGATIVE); KETONES URINE NEGATIVE (NEGATIVE); LEUKOCYTE ESTERASE URINE TRACE (NEGATIVE); NITRITE URINE NEGATIVE (NEGATIVE); OCCULT BLOOD URINE 3+ (NEGATIVE); PH URINE 8.5 (4.5-8.0); PROTEIN URINE 1+ (NEGATIVE); SPECIFIC GRAVITY URINE 1.011 (1.005-1.030); UROBILINOGEN URINE 0.2 E.U./dL (0.2-1.0)
[2023-03-29 19:11] LABS: BACTERIA URINE 1+; RBC URINE TNTC /hpf (0-2); SQUAMOUS EPITHELIAL CELL URINE FEW /lpf (RARE/1+); WBC URINE 0-2 /hpf (0-2)
[2023-03-29 20:00] VITALS: BP 145/59; PULSE 83; RESP 18; TEMP 98
[2023-03-29] MEDS: INSULIN GLARGINE 100 UNITS/ML SUBCUT SCH (21:34)
[2023-03-29] MEDS ORDERED: IOHEXOL-300 100 ML BOTTLE ONE (21:41)
[2023-03-30] VITALS: BP 139/63; PULSE 83; RESP 18; TEMP 98.2
[2023-03-30] MEDS: AMPICILLIN SOD/SULBACTAM NA 3 G in SODIUM CHLORIDE 0.9% 100 ML IV SCH ×4 (05:03→21:53)
[2023-03-30 05:18] VITALS: BP 113/71; PULSE 75; RESP 20; TEMP 97.9
[2023-03-30] MEDS: INSULIN LISPRO 100 UNITS/ML SUBCUT SCH ×6 (06:21→21:03)
[2023-03-30] MEDS: BLOOD SUGAR DIAGNOSTIC STRIP TEST SCH ×4 (06:21→21:03)
[2023-03-30 07:30] LABS: HEMATOCRIT 22.5 % (42.0-52.0); HEMOGLOBIN 7.5 g/dL (14.0-18.0); MEAN CORPUSCULAR HEMOGLOBIN 30.5 pg (28.0-32.0); MEAN CORPUSCULAR HGB CONC 33.5 g/dL (31.0-37.0); PLATELET 414 x1000/uL (130-400); RED BLOOD CELL COUNT 2.47 mill/uL (4.7-6.1); RED CELL DISTRIBUTION WIDTH 14.6 % (11.6-14.6); WHITE BLOOD COUNT 7.7 x1000/uL (4.5-11.0)
[2023-03-30] MEDS: FERROUS SULFATE 325MG TABLET PO SCH ×3 (07:40→18:34)
[2023-03-30 08:00] VITALS: BP 124/61; PULSE 74; RESP 20; TEMP 99
[2023-03-30] MEDS: TAMSULOSIN HCL 0.4MG SR CAPSULE PO SCH (09:11)
[2023-03-30 09:19] LABS: ALANINE AMINOTRANSFERASE < 7 IU/L (10-49); ALBUMIN 2.9 g/dL (3.2-4.8); ASPARTATE AMINOTRANSFERASE 15 IU/L (<34); BILIRUBIN TOTAL 0.2 mg/dL (0.1-1.0); CALCIUM 8.1 mg/dL (8.7-10.4); CARBON DIOXIDE 30 mEq/L (21-32); CHLORIDE 100 mEq/L (98-107); GLUCOSE 136 mg/dL (70-105); POTASSIUM 4.1 mEq/L (3.5-5.1); PROTEIN TOTAL 5.3 g/dL (6.0-8.3); SODIUM 136 mEq/L (136-145); UREA NITROGEN BLOOD 11 mg/dL (9-23)
[2023-03-30 12:00] VITALS: BP 156/83; PULSE 81; RESP 20; TEMP 98.8
[2023-03-30] MEDS: MELATONIN 3MG TABLET PO PRN (18:34)
[2023-03-30 20:00] VITALS: BP 104/58; PULSE 77; RESP 18; TEMP 98.4
[2023-03-30] MEDS: INSULIN GLARGINE 100 UNITS/ML SUBCUT SCH (22:04)
[2023-03-30] MEDS ORDERED: KETOROLAC 15MG/ML VIAL IV PRN (23:30)
[2023-03-31] VITALS: BP 130/89; PULSE 87; RESP 20; TEMP 98.4
[2023-03-31 04:00] VITALS: BP 133/80; PULSE 80; RESP 20; TEMP 98
[2023-03-31] MEDS: AMPICILLIN SOD/SULBACTAM NA 3 G in SODIUM CHLORIDE 0.9% 100 ML IV SCH ×4 (04:25→21:00)
[2023-03-31] MEDS: BLOOD SUGAR DIAGNOSTIC STRIP TEST SCH ×3 (06:40→20:14)
[2023-03-31] MEDS: INSULIN LISPRO 100 UNITS/ML SUBCUT SCH ×6 (06:40→20:14)
[2023-03-31 08:00] VITALS: BP 142/67; PULSE 68; RESP 20; TEMP 97.6
[2023-03-31] MEDS: FERROUS SULFATE 325MG TABLET PO SCH ×3 (08:52→19:39)
[2023-03-31] MEDS: TAMSULOSIN HCL 0.4MG SR CAPSULE PO SCH (08:53)
[2023-03-31 12:00] VITALS: BP 124/65; PULSE 76; RESP 20; TEMP 98.1
[2023-03-31 16:00] VITALS: BP 121/55; PULSE 68; RESP 20; TEMP 98.2
[2023-03-31] MEDS: MELATONIN 3MG TABLET PO PRN (19:44)
[2023-03-31 20:00] VITALS: BP 109/54; PULSE 67; RESP 18; TEMP 99.8
[2023-03-31] MEDS: INSULIN GLARGINE 100 UNITS/ML SUBCUT SCH (21:00)
[2023-04-01] VITALS: BP 112/60; PULSE 88; RESP 20; TEMP 97.8
[2023-04-01 04:00] VITALS: BP 135/66; PULSE 88; RESP 20; TEMP 98.2
[2023-04-01] MEDS: AMPICILLIN SOD/SULBACTAM NA 3 G in SODIUM CHLORIDE 0.9% 100 ML IV SCH ×4 (05:38→21:55)
[2023-04-01] MEDS: BLOOD SUGAR DIAGNOSTIC STRIP TEST SCH ×4 (05:46→21:00)
[2023-04-01] MEDS: INSULIN LISPRO 100 UNITS/ML SUBCUT SCH ×6 (07:40→21:00)
[2023-04-01 07:46] LABS: BASOPHILS % 0.7 % (0.0-2.0); EOSINOPHILS % 1.7 % (0.0-5.0); HEMATOCRIT. 22.3 % (42.0-52.0); HEMOGLOBIN. 7.5 g/dL (14.0-18.0); LYMPHOCYTES % 20.7 % (20.0-50.0); MEAN CORPUSCULAR HEMOGLOBIN 30.6 pg (28.0-32.0); MEAN CORPUSCULAR HGB CONC 33.6 g/dL (31.0-37.0); MEAN CORPUSCULAR VOLUME 91.1 fL (80.0-94.0); MEAN PLATELET VOLUME 6.4 fl (7.4-10.4); MONOCYTES % 12.1 % (2.0-8.0); NEUTROPHILS % 64.8 % (40.0-76.0); PLATELET 359 x1000/uL (130-400); RED BLOOD CELL COUNT 2.44 mill/uL (4.7-6.1); RED CELL DISTRIBUTION WIDTH 15.1 % (11.6-14.6); WHITE BLOOD COUNT 4.9 x1000/uL (4.5-11.0)
[2023-04-01 08:00] VITALS: BP 133/61; PULSE 66; RESP 18; TEMP 97.1
[2023-04-01 08:19] LABS: CALCIUM 8.1 mg/dL (8.7-10.4); CARBON DIOXIDE 27 mEq/L (21-32); CHLORIDE 101 mEq/L (98-107); CREATININE 0.9 mg/dL (0.6-1.3); GLUCOSE 94 mg/dL (70-105); POTASSIUM 4.4 mEq/L (3.5-5.1); SODIUM 135 mEq/L (136-145); UREA NITROGEN BLOOD 12 mg/dL (9-23)
[2023-04-01] MEDS: TAMSULOSIN HCL 0.4MG SR CAPSULE PO SCH (10:06)
[2023-04-01] MEDS: FERROUS SULFATE 325MG TABLET PO SCH ×3 (10:07→17:18)
[2023-04-01 12:00] VITALS: BP 134/71; PULSE 73; RESP 20; TEMP 97.7
[2023-04-01 16:00] VITALS: BP 124/67; PULSE 64; RESP 20; TEMP 98.5
[2023-04-01 20:00] VITALS: BP 121/55; PULSE 64; RESP 17; TEMP 97
[2023-04-01] MEDS: MELATONIN 3MG TABLET PO PRN (21:10)
[2023-04-01] MEDS: INSULIN GLARGINE 100 UNITS/ML SUBCUT SCH (21:13)
[2023-04-02] VITALS: BP 125/64; PULSE 81; RESP 18; TEMP 97.8
[2023-04-02] MEDS: AMPICILLIN SOD/SULBACTAM NA 3 G in SODIUM CHLORIDE 0.9% 100 ML IV SCH ×3 (03:07→16:05)
[2023-04-02 04:00] VITALS: BP 125/79; PULSE 65; RESP 18; TEMP 97.5
[2023-04-02] MEDS: BLOOD SUGAR DIAGNOSTIC STRIP TEST SCH ×3 (06:23→17:10)
[2023-04-02] MEDS: INSULIN LISPRO 100 UNITS/ML SUBCUT SCH ×4 (06:23→17:14)
[2023-04-02] MEDS: FERROUS SULFATE 325MG TABLET PO SCH ×2 (06:24→12:52)
[2023-04-02 07:26] LABS: BASOPHILS % 0.3 % (0.0-2.0); EOSINOPHILS % 0.9 % (0.0-5.0); HEMATOCRIT. 22.6 % (42.0-52.0); HEMOGLOBIN. 7.3 g/dL (14.0-18.0); LYMPHOCYTES % 18.9 % (20.0-50.0); MEAN CORPUSCULAR HEMOGLOBIN 29.9 pg (28.0-32.0); MEAN CORPUSCULAR HGB CONC 32.3 g/dL (31.0-37.0); MEAN CORPUSCULAR VOLUME 92.5 fL (80.0-94.0); MEAN PLATELET VOLUME 6.4 fl (7.4-10.4); MONOCYTES % 12.1 % (2.0-8.0); NEUTROPHILS % 67.8 % (40.0-76.0); PLATELET 319 x1000/uL (130-400); RED BLOOD CELL COUNT 2.45 mill/uL (4.7-6.1); RED CELL DISTRIBUTION WIDTH 15.1 % (11.6-14.6)
[2023-04-02 08:00] VITALS: BP 138/87; PULSE 65; RESP 20; TEMP 97.6
[2023-04-02 08:17] LABS: CALCIUM 8.2 mg/dL (8.7-10.4); CARBON DIOXIDE 30 mEq/L (21-32); CHLORIDE 101 mEq/L (98-107); CREATININE 0.9 mg/dL (0.6-1.3); GLUCOSE 111 mg/dL (70-105); POTASSIUM 4.4 mEq/L (3.5-5.1); SODIUM 136 mEq/L (136-145); UREA NITROGEN BLOOD 14 mg/dL (9-23)
[2023-04-02] MEDS: TAMSULOSIN HCL 0.4MG SR CAPSULE PO SCH (08:57)
[2023-04-02 12:00] VITALS: BP 140/88; PULSE 67; RESP 19; TEMP 98
[2023-04-02 14:00] VITALS: BP 147/82; PULSE 69; TEMP 98.2; O2SAT 100
[2023-04-02 15:52] VITALS: BP 139/87; PULSE 72; RESP 20; TEMP 98.2
== END 2023-04-02 18:03 | disposition short-term general hospital (02) | DRG 853 ==
LOC: ER 23:23 → 8WST 03-18 02:43 → EDBEDREQTM 03-18 02:49 → EDBEDREQ 03-18 02:49
PROVIDERS: ADMIT Internal Medicine; ATTEND Internal Medicine
PROC: 3E10X8Z Irrigation of Skin and Mucous Membranes using Irrigating Substance (ICD-10-PCS; 2023-03-18)
PROC: 0QBQ0ZX Excision of Right Toe Phalanx, Open Approach, Diagnostic (ICD-10-PCS; 2023-03-18)
PROC: 0QBN0ZZ Excision of Right Metatarsal, Open Approach (ICD-10-PCS; 2023-03-22)
PROC: 0Y6P0Z0 Detachment at Right 1st Toe, Complete, Open Approach (ICD-10-PCS; principal; 2023-03-25)
PROC: 0JBN0ZZ Excision of Right Lower Leg Subcutaneous Tissue and Fascia, Open Approach (ICD-10-PCS; 2023-03-25)
PROC: 02HV33Z Insertion of Infusion Device into Superior Vena Cava, Percutaneous Approach (ICD-10-PCS; 2023-03-26)
PROC: B548ZZA Ultrasonography of Superior Vena Cava, Guidance (ICD-10-PCS; 2023-03-26)
DX: A41.9 Sepsis, unspecified organism (principal); M72.6 Necrotizing fasciitis; E87.1 Hypo-osmolality and hyponatremia; L03.115 Cellulitis of right lower limb; N13.30 Unspecified hydronephrosis; N17.9 Acute kidney failure, unspecified; E46 Unspecified protein-calorie malnutrition; M62.82 Rhabdomyolysis; M86.171 Other acute osteomyelitis, right ankle and foot; Z20.822 Contact with and (suspected) exposure to COVID-19; D75.839 Thrombocytosis, unspecified; E87.6 Hypokalemia; I10 Essential (primary) hypertension; J43.9 Emphysema, unspecified; L97.519 Non-pressure chronic ulcer of other part of right foot with unspecified severity; E11.621 Type 2 diabetes mellitus with foot ulcer; E11.69 Type 2 diabetes mellitus with other specified complication; I25.10 Atherosclerotic heart disease of native coronary artery without angina pectoris; K57.30 Diverticulosis of large intestine without perforation or abscess without bleeding; N28.1 Cyst of kidney, acquired; D50.9 Iron deficiency anemia, unspecified; R31.9 Hematuria, unspecified; Z79.4 Long term (current) use of insulin; Z79.84 Long term (current) use of oral hypoglycemic drugs
CPT/HCPCS: 36415; 36573; 71045; 73590; 73630; 73700; 74177; 76770; 76857; 80048; 80053; 80061; 80202; 80305; 80320; 81003; 82550; 82607; 82728; 82746; 82962; 83036; 83540; 83550; 83605; 83930; 83935; 84145; 84153; 84439; 84443; 84484; 85025; 85027; 85651; 86850; 86900; 87070; 87075; 87077; 87186; 87426; 88304; 88305; 88311; 90686; 90732; 93971; 97167; 97530; 99291; A6261; C1725; C1893; J0295; J0330; J0690; J0692; J0696; J1100; J1170; J1580; J1650; J1815; J2250; J2270; J2370; J2405; J2543; J2704; J2710; J3010; J3370; J3490; J7030; J7050; J7060; Q9967; G0103; G0480